=== PATIENT | female | born 1955 | race Caucasian/White ===

== ENCOUNTER 2016-10-28 22:01 | Observation (INO) | payer BC ==
--- NOTE | 2016-10-28 22:10 | CPEKG ---
Heart Rate: 87 RR Interval: 690 P-R Interval: 132 QRSD Interval: 72 QT Interval: 400 QTC Interval: 482 P [place]: 68 QRS [place]: 62 T Wave [place]: -29 EKG Severity - BORDERLINE ECG - EKG Impression: SINUS RHYTHM EKG Impression: BORDERLINE T ABNORMALITIES, INFERIOR LEADS Electronically Signed By: Hubert Leroy 29-Oct-2016 01:35:07
[2016-10-28] MEDS ORDERED: NS 1,000 ML IV ONE (22:14)
[2016-10-28] MEDS ORDERED: NALOXONE HCL 0.4 MG/ML INJ ONE (22:22)
[2016-10-28] MEDS ORDERED: LORazepam 2 MG/ML INJ IVP ONE (22:25)
[2016-10-28 22:28] LABS: % IMMATURE GRANULYOCYTES 0.3 % (0.0-1.1); ABSOLUTE IMMATURE GRANULOCYTES 0.03 10^3/uL (0.00-0.10); ADD DIFF? NO; ADD MORPH? NO; ADD SCAN? NO; ATYPICAL LYMPHOCYTE FLAG 20 (0-99); FRAGMENT RBC FLAG 0 (0-99); HEMATOCRIT 43.1 % (38.0-47.0); HEMOGLOBIN 14.5 g/dL (12.6-16.3); LEFT SHIFT FLG 0 (0-99); LIPEMIA HEMOLYSIS FLAG 80 (0-99); MEAN CELL HEMOGLOBIN 25.4 pg (27.9-34.1); MEAN CELL HEMOGLOBIN CONCENTR. 33.6 g/dL (32.4-36.7); MEAN CELL VOLUME 75.6 fL (81.5-99.8); MEAN PLATELET VOLUME 10.2 fL (8.7-11.7); PLATELET CLUMPS FLAG 0 (0-99); PLATELET COUNT 306 10^3/uL (150-400); RED CELL DISTRIBUTION WIDTH 13.3 % (11.5-15.2)
[2016-10-28 22:41] LABS: ANION GAP 18 mEq/L (8-16); CARBON DIOXIDE 20 mEq/l (22-31); CHLORIDE 100 mEq/L (97-110); CREATININE 0.8 mg/dL (0.6-1.0); GLOMERULAR FILTRATION RATE > 60; GLUCOSE 159 mg/dL (70-100); POTASSIUM 3.8 mEq/L (3.5-5.2); SODIUM 138 mEq/L (134-144)
[2016-10-28 22:53] LABS: TROPONIN I 0.226 ng/mL (0-0.034)
--- NOTE | 2016-10-28 23:09 | EDPHY ---
H & P Stated Complaint: S/p [id number] for 4 days Time Seen by Provider: 10/28/16 22:04 HPI/ROS: Chief Complaint: Cough, shortness of breath, nausea HPI: 61-year-old woman brought in from the [facility] this evening. Patient states she has been having a cough and cold-like symptoms for the last 3 days. She has been staying in bed of the getting out to register for the race. She was unable to complete the course tonight. She developed worsening shortness of breath, some nausea no vomiting. Has having a productive cough of greenish sputum. Some subjective chills. Has got diffuse body aches as well. Denies chest pain. Does have some leg cramping. She is visiting from [facility]. States she has been in town for about 7 days. ROS: 10 point Review of Systems is negative except as noted in the HPI. PMH: Hyper lipidemia, insomnia Medications: Simvastatin, trazodone, gabapentin Allergies: No known drug allergies Social History: No smoking, occasional alcohol, no recreational drug use Family History: non-contributory Physical Exam: Gen: Awake, Alert, anxious appearing, no distress HEENT: Nose: no rhinorrhea Eyes: PERRLA, EOMI Mouth: Moist mucosa Neck: Supple, no JVD Chest: nontender, lungs clear to auscultation Heart: S1, S2 normal, no murmur Abd: Soft, non-tender, no guarding Back: no CVA tenderness, no midline tenderness Ext: no edema, non-tender Skin: no rash Neuro: CN II-XII intact, Sensation grossly intact, Strength 5/5 in bilateral upper and lower extremities - Personal History Current Tetanus Diphtheria and Acellular Pertussis (TDAP): Yes - Medical/Surgical History Hx Asthma: No Hx Chronic Respiratory Disease: No Hx Diabetes: No Hx Cardiac Disease: No Hx Renal Disease: No Hx Cirrhosis: No Hx Alcoholism: No Hx HIV/AIDS: No Hx Splenectomy or Spleen Trauma: No Other PMH: hysterectomy - Social History Smoking Status: Never smoked Constitutional: Initial Vital Signs Temperature (C) 36.6 C 10/28/16 22:14 Heart Rate 81 10/28/16 22:14 Respiratory Rate 50 H 10/28/16 22:14 Blood Pressure 155/76 H 10/28/16 22:14 O2 Sat (%) 99 10/28/16 22:14 O2 Delivery Mode Room Air Medical Decision Making - Diagnostics EKG Interpretation: ECG time 10:08 p.m., sinus rhythm with a rate of 87, normal axis, normal intervals, no acute ST or T-wave changes. Imaging Results: Imaging Impressions Chest X-Ray 10/28/16 22:13 Impression: Suspect early left lower lobe pneumonia. Findings and recommendations discussed with Emergency Department physician, Hubert Leroy MD at 22:36 hour, 10/28/2016. Final report concurs with initial preliminary interpretation. Imaging: Discussed imaging studies w/ call center support representative Radiologist, I viewed and interpreted images myself ED Course/Re-evaluation: 61-year-old with productive cough and general fatigue after running the iron man. No acute findings on her ECG. Chest x-ray is consistent with a left lower lobe pneumonia. Patient has a mild elevation in his CPK. Troponin is noted to be elevated at 0.224. Patient has had blood culture sent. Will order IV antibiotics. Patient has also been given aspirin. Will continue to hydrate Discussed with Dr. roland, hospitalist. Will admit to PCU for IV antibiotics, serial troponins and continued hydration. - Data Points Laboratory Results: Laboratory Results 10/28/16 22:00 10/28/16 22:00 10/28/16 10/28/16 10/28/16 22:07 22:00 22:00 WBC RBC Hgb POC Hgb 15.3 gm/dL gm/dL (12.6-16.3) Hct POC Hct 45 % % (38-47) MCV MCH MCHC RDW Plt Count MPV Neut % (Auto) Lymph % (Auto) [place] % (Auto) Eos % (Auto) Baso % (Auto) Nucleat RBC Rel Count Absolute Neuts (auto) Absolute Lymphs (auto) Absolute Monos (auto) Absolute Eos (auto) Absolute Basos (auto) Absolute Nucleated RBC Immature Gran % Immature Gran # POC Sodium 139 mEq/L mEq/L (134-144) Sodium 138 mEq/L mEq/L (134-144) POC Potassium 3.5 mEq/L mEq/L (3.3-5.0) Potassium 3.8 mEq/L mEq/L (3.5-5.2) POC Chloride 100 mEq/L mEq/L (97-110) Chloride 100 mEq/L mEq/L (97-110) Carbon Dioxide 20 mEq/l L mEq/l (22-31) Anion Gap 18 mEq/L H mEq/L (8-16) POC BUN 14 mg/dL mg/dL (7-23) BUN 15 mg/dL mg/dL (7-23) Creatinine 0.8 mg/dL mg/dL (0.6-1.0) POC Creatinine 0.8 mg/dL mg/dL (0.6-1.0) Estimated GFR > 60 Glucose 159 mg/dL H mg/dL (70-100) POC Glucose 161 mg/dL H mg/dL (70-100) Calcium 11.0 mg/dL H mg/dL (8.5-10.4) Phosphorus 1.9 mg/dL L mg/dL (2.5-4.5) Creatine Kinase 1325 IU/L H IU/L (0-156) CK-MB (CK-2) Fraction Pending CK-MB (CK-2) % Pending Creatine Kinase Interp Pending Troponin I 0.226 ng/mL H ng/mL (0-0.034) 10/28/16 22:00 WBC 10.55 10^3/uL H 10^3/uL (3.80-9.50) RBC 5.70 10^6/uL H 10^6/uL (4.18-5.33) Hgb 14.5 g/dL g/dL (12.6-16.3) POC Hgb Hct 43.1 % % (38.0-47.0) POC Hct MCV 75.6 fL L fL (81.5-99.8) MCH 25.4 pg L pg (27.9-34.1) MCHC 33.6 g/dL g/dL (32.4-36.7) RDW 13.3 % % (11.5-15.2) Plt Count 306 10^3/uL 10^3/uL (150-400) MPV 10.2 fL fL (8.7-11.7) Neut % (Auto) 74.6 % H % (39.3-74.2) Lymph % (Auto) 15.0 % % (15.0-45.0) [place] % (Auto) 9.8 % % (4.5-13.0) Eos % (Auto) 0.0 % L % (0.6-7.6) Baso % (Auto) 0.3 % % (0.3-1.7) Nucleat RBC Rel Count 0.0 % % (0.0-0.2) Absolute Neuts (auto) 7.88 10^3/uL H 10^3/uL (1.70-6.50) Absolute Lymphs (auto) 1.58 10^3/uL 10^3/uL (1.00-3.00) Absolute Monos (auto) 1.03 10^3/uL H 10^3/uL (0.30-0.80) Absolute Eos (auto) 0.00 10^3/uL L 10^3/uL (0.03-0.40) Absolute Basos (auto) 0.03 10^3/uL 10^3/uL (0.02-0.10) Absolute Nucleated RBC 0.00 10^3/uL 10^3/uL (0-0.01) Immature Gran % 0.3 % % (0.0-1.1) Immature Gran # 0.03 10^3/uL 10^3/uL (0.00-0.10) POC Sodium Sodium POC Potassium Potassium POC Chloride Chloride Carbon Dioxide Anion Gap POC BUN BUN Creatinine POC Creatinine Estimated GFR Glucose POC Glucose Calcium Phosphorus Creatine Kinase CK-MB (CK-2) Fraction CK-MB (CK-2) % Creatine Kinase Interp Troponin I Medications Given: Discontinued Medications Sodium Chloride (Ns) 1,000 mls @ 0 mls/hr IV ONCE ONE; Wide Open PRN Reason: Protocol Stop: 10/28/16 22:15 Last Admin: 10/28/16 23:10 Dose: 1,000 mls Lorazepam (Ativan Injection) 1 mg IVP EDNOW ONE Stop: 10/28/16 22:26 Last Admin: 10/28/16 23:10 Dose: Not Given Point of Care Test Results: 10/28/16 22:07 POC Sodium 139 POC Potassium 3.5 POC Chloride 100 POC BUN 14 POC Creatinine 0.8 POC Glucose 161 H Departure - Departure Disposition: [facility] Inpatient Acute Clinical Impression: Dehydration, Pneumonia, Rhabdomyolysis, Elevated troponin Condition: Fair Referrals: Patient,NotPresent [Primary Care Provider] - As per Instructions
[2016-10-28] MEDS ORDERED: cefTRIAXone 2 GM in D5W 50 ML IV ONE (23:11)
[2016-10-28] MEDS ORDERED: AZITHROMYCIN 250 MG TAB PO ONE (23:11)
[2016-10-28] MEDS ORDERED: ASPIRIN 325 MG TAB ONE (23:14)
[2016-10-28 23:40] LABS: CK-MB INTERPRETATION NEGATIVE (NEGATIVE)
[2016-10-28] MEDS ORDERED: ONDANSETRON 4 MG/2 ML VIAL IVP ONE (23:43)
[2016-10-29] MEDS ORDERED: ONDANSETRON 4 MG/2 ML VIAL IVP PRN (01:22)
[2016-10-29] MEDS ORDERED: ONDANSETRON DISINTEGRATING 4 MG TAB PO PRN (01:22)
[2016-10-29] MEDS ORDERED: ACETAMINOPHEN 325 MG TAB PO PRN (01:22)
[2016-10-29] MEDS ORDERED: guaiFENesin/CODEINE PHOS 10 ML UDCUP PO PRN (01:26)
[2016-10-29] MEDS ORDERED: NS W/ 20 KCl/L 1,000 ML IV SCH (01:30)
[2016-10-29] MEDS ORDERED: ALBUTEROL 60 PUFFS/8 GM MDI IH PRN (03:19)
[2016-10-29] MEDS ORDERED: CEPACOL LOZENGE PO PRN (03:20)
[2016-10-29] MEDS ORDERED: LIDOCAINE 2% VISCOUS 15 ML UDCUP PO PRN (03:20)
--- NOTE | 2016-10-29 03:27 | PDGENHP ---
History and Physical - Chief Complaint Acute malaise - History of Present Illness 61 year female presents with acute malaise characterized as a evolution of symptoms making her feel generally unwell including sore throat, sinus congestion, myalgias, associated productive cough of green sputum with onset of symptoms 4 days prior and duration persistent thereafter. Patient reports that the symptoms began after she traveled to [place] and they have not abated despite resting daily, throat lozenges, [id number] DayQuil. She attempted to complete the iron man challenge on the day of this presentation and she reports that her symptoms were exacerbated by the swimming and running portions of the challenge in particular. She also reports poor oral intake on the day of this presentation secondary to anorexia but no overt nausea or vomiting. She does report that since stopping the race and presenting to the emergency department, her symptoms have been somewhat alleviated with the IV fluids and electrolyte she has received here. During the entirety of the challenge as well as the days leading up to it, the patient denies any overt chest pain or particular shortness of breath. History Information - Allergies/Home Medication List Allergies/Adverse Reactions: No Known Allergies Allergy (Unverified 10/28/16 23:42) I have personally reviewed and updated: family history, medical history, social history, surgical history - Past Medical History hyperlipidemia Additional medical history: Transaminitis of unclear etiology - Surgical History Reports: no pertinent surgical hx - Family History Additional family history: mother with coronary artery disease and balloon angioplasty, not premature - Social History Smoking Status: Never smoked Alcohol Use: Occasionally Drug Use: None Additional social history: lives in [facility], most recent iron man completed was in March of 2016 Review of Systems ROS: 10pt was reviewed & negative except for what was stated in HPI & below Constitutional: Reports: malaise, weakness EENMT: Reports: nose congestion, sore throat, other ( sinus congestion, rhinorrhea) Respiratory: Reports: cough ( productive) Muscolosketal: Reports: muscle pain Physical Exam Temp Pulse Resp BP Pulse Ox 37.2 C 78 18 129/64 H 94 10/29/16 00:25 10/29/16 00:25 10/29/16 00:25 10/29/16 00:25 10/29/16 00:25 Constitutional: no apparent distress, not in pain, other ( sunburned), No uncomfortable Eyes: PERRL, anicteric sclera, scleral injection Ears, Nose, Mouth, Throat: moist mucous membranes, hearing normal, ears appear normal, no oral mucosal ulcers, other ( no tonsillar exudate) Cardiovascular: diastolic murmur ( right sternal border), No irregularly irregular, No tachycardia, No edema Respiratory: inspiratory crackles ( left base posteriorly), No reduced air movement, No expiratory wheeze, No bronchial breath sounds, No respiratory distress Gastrointestinal: normoactive bowel sounds, soft, non-tender abdomen, no palpable masses Skin: other ( sunburn legs up to the mid thighs, skin mildly raised, sunburned face) Neurologic: AAOx3, sensation intact bilaterally, No weakness Psychiatric: interacting appropriately, not anxious, not encephalopathic, thought process linear Lab Data & Imaging Review 10/28/16 22:00 10/28/16 22:00 WBC 10.55 10^3/uL (3.80-9.50) H 10/28/16 22:00 RBC 5.70 10^6/uL (4.18-5.33) H 10/28/16 22:00 Hgb 14.5 g/dL (12.6-16.3) 10/28/16 22:00 POC Hgb 15.3 gm/dL (12.6-16.3) 10/28/16 22:07 Hct 43.1 % (38.0-47.0) 10/28/16 22:00 POC Hct 45 % (38-47) 10/28/16 22:07 MCV 75.6 fL (81.5-99.8) L 10/28/16 22:00 MCH 25.4 pg (27.9-34.1) L 10/28/16 22:00 MCHC 33.6 g/dL (32.4-36.7) 10/28/16 22:00 RDW 13.3 % (11.5-15.2) 10/28/16 22:00 Plt Count 306 10^3/uL (150-400) 10/28/16 22:00 MPV 10.2 fL (8.7-11.7) 10/28/16 22:00 Neut % (Auto) 74.6 % (39.3-74.2) H 10/28/16 22:00 Lymph % (Auto) 15.0 % (15.0-45.0) 10/28/16 22:00 [place] % (Auto) 9.8 % (4.5-13.0) 10/28/16 22:00 Eos % (Auto) 0.0 % (0.6-7.6) L 10/28/16 22:00 Baso % (Auto) 0.3 % (0.3-1.7) 10/28/16 22:00 Nucleat RBC Rel Count 0.0 % (0.0-0.2) 10/28/16 22:00 Absolute Neuts (auto) 7.88 10^3/uL (1.70-6.50) H 10/28/16 22:00 Absolute Lymphs (auto) 1.58 10^3/uL (1.00-3.00) 10/28/16 22:00 Absolute Monos (auto) 1.03 10^3/uL (0.30-0.80) H 10/28/16 22:00 Absolute Eos (auto) 0.00 10^3/uL (0.03-0.40) L 10/28/16 22:00 Absolute Basos (auto) 0.03 10^3/uL (0.02-0.10) 10/28/16 22:00 Absolute Nucleated RBC 0.00 10^3/uL (0-0.01) 10/28/16 22:00 Immature Gran % 0.3 % (0.0-1.1) 10/28/16 22:00 Immature Gran # 0.03 10^3/uL (0.00-0.10) 10/28/16 22:00 VBG Lactic Acid 2.0 mmol/L (0.7-2.1) 10/28/16 23:10 POC Sodium 139 mEq/L (134-144) 10/28/16 22:07 Sodium 138 mEq/L (134-144) 10/28/16 22:00 POC Potassium 3.5 mEq/L (3.3-5.0) 10/28/16 22:07 Potassium 3.8 mEq/L (3.5-5.2) 10/28/16 22:00 POC Chloride 100 mEq/L (97-110) 10/28/16 22:07 Chloride 100 mEq/L (97-110) 10/28/16 22:00 Carbon Dioxide 20 mEq/l (22-31) L 10/28/16 22:00 Anion Gap 18 mEq/L (8-16) H 10/28/16 22:00 POC BUN 14 mg/dL (7-23) 10/28/16 22:07 BUN 15 mg/dL (7-23) 10/28/16 22:00 Creatinine 0.8 mg/dL (0.6-1.0) 10/28/16 22:00 POC Creatinine 0.8 mg/dL (0.6-1.0) 10/28/16 22:07 Estimated GFR > 60 10/28/16 22:00 Glucose 159 mg/dL (70-100) H 10/28/16 22:00 POC Glucose 161 mg/dL (70-100) H 10/28/16 22:07 Calcium 11.0 mg/dL (8.5-10.4) H 10/28/16 22:00 Phosphorus 1.9 mg/dL (2.5-4.5) L 10/28/16 22:00 Creatine Kinase 1325 IU/L (0-156) H 10/28/16 22:00 CK-MB (CK-2) Fraction 18.00 ng/mL (0-4.55) H 10/28/16 22:00 CK-MB (CK-2) % 1.4 % (0.0-4.0) 10/28/16 22:00 Creatine Kinase Interp NEGATIVE (NEGATIVE) 10/28/16 22:00 Troponin I 0.226 ng/mL (0-0.034) H 10/28/16 22:00 Procalcitonin 0.22 ng/mL (0.02-0.10) H 10/28/16 22:00 Visualized and Interpreted Chest x-ray results: Yes Chest X-Ray results: other ( faint possible infiltrate in the left lower lobe) Visualized and Interpreted EKG results: Yes EKG Interpretation: Positive for: other ( normal sinus rhythm without any ischemic changes) Assessment & Plan Assessment: 61-year-old female presenting with possible pneumonia in the setting of abnormal troponin level Plan: 1. Possible pneumonia. Acute, new problem this provider, further workup indicated. Evidenced by possible left lower lobe infiltrate on chest x-ray as well as mild leukocytosis and Infectious sending symptoms. - send procalcitonin level to help guide whether this is bacterial versus viral - empirically send respiratory viral panel as her constellation of symptoms is highly suggestive of a viral process - monitor CBC - if procalcitonin level positive, suggest getting a CT without contrast of the chest to further define whether she has a focal left lower lobe infiltrate and if not would recommend imaging neck with IV contrast to determine whether she has any peritonsillar abscess - discussed with Dr. Douglas Leroy in the emergency department, he has reported to me that the patient was given IV ceftriaxone and azithromycin, continue 2. Abnormal troponin level. Most likely secondary to myocardial strain in the setting of completing 2/3 of an Iron Man challenge without any overt chest pain , shortness of breath, recent reduction in exercise tolerance outside of what would be expected with attempting to complete the aforementioned rates in the setting of possible pneumonia - repeat troponin level in a.m. - if troponin level is rising or persistently elevated, recommend getting echocardiogram at that time and then considering possible further cardiac risk stratification - discussed with patient, I have recommended to her that if her troponin level is down trending then she defer a stress test until she sees her primary care provider and then that performed prior to reinitiating Iron Man level training or further challenges - monitor on telemetry overnight 3. Sunburn. Provide as needed moist rising lotion, no evidence of renal dysfunction so it is unlikely that she is experienced acute sun poisoning 4. Hyperglycemia. Most likely stress response in the setting of recent physical exertion. Diet. Regular Prophylaxis. High risk patient, Lovenox 40 Code. Full Disposition. Anticipated discharge is 10/29/2016, pending further workup as outlined above.
[2016-10-29 05:43] VITALS: RESP 16
[2016-10-29 06:07] LABS: % IMMATURE GRANULYOCYTES 0.3 % (0.0-1.1); ABSOLUTE IMMATURE GRANULOCYTES 0.02 10^3/uL (0.00-0.10); ADD DIFF? NO; ADD MORPH? NO; ADD SCAN? NO; ATYPICAL LYMPHOCYTE FLAG 20 (0-99); FRAGMENT RBC FLAG 0 (0-99); HEMATOCRIT 37.8 % (38.0-47.0); HEMOGLOBIN 12.3 g/dL (12.6-16.3); LEFT SHIFT FLG 0 (0-99); LIPEMIA HEMOLYSIS FLAG 80 (0-99); MEAN CELL HEMOGLOBIN 25.3 pg (27.9-34.1); MEAN CELL HEMOGLOBIN CONCENTR. 32.5 g/dL (32.4-36.7); MEAN CELL VOLUME 77.8 fL (81.5-99.8); MEAN PLATELET VOLUME 10.6 fL (8.7-11.7); PLATELET CLUMPS FLAG 0 (0-99); PLATELET COUNT 259 10^3/uL (150-400); RED BLOOD CELL COUNT 4.86 10^6/uL (4.18-5.33); RED CELL DISTRIBUTION WIDTH 13.3 % (11.5-15.2)
[2016-10-29 07:29] VITALS: BP 112/59; PULSE 67; TEMP 98.1; O2SAT 97
[2016-10-29 07:44] LABS: ALANINE AMINOTRANSFERASE 49 IU/L (9-52); ALBUMIN 3.6 g/dL (3.5-5.0); ALKALINE PHOSPHATASE 66 IU/L (38-126); ANION GAP 10 mEq/L (8-16); ASPARTATE AMINOTRANSFERASE 75 IU/L (14-46); BILIRUBIN,TOTAL 0.6 mg/dL (0.1-1.4); CALCIUM 9.6 mg/dL (8.5-10.4); CARBON DIOXIDE 24 mEq/l (22-31); CHLORIDE 106 mEq/L (97-110); CREATININE 0.7 mg/dL (0.6-1.0); GLOMERULAR FILTRATION RATE > 60; GLUCOSE 98 mg/dL (70-100); POTASSIUM 4.3 mEq/L (3.5-5.2); SODIUM 140 mEq/L (134-144); TOTAL PROTEIN 5.8 g/dL (6.3-8.2)
[2016-10-29 07:55] LABS: TROPONIN I 0.136 ng/mL (0-0.034)
--- NOTE | 2016-10-29 08:47 | CPEKG ---
Heart Rate: 59 RR Interval: 1017 P-R Interval: 140 QRSD Interval: 74 QT Interval: 456 QTC Interval: 452 P [place]: 73 QRS [place]: 68 T Wave [place]: 32 EKG Severity - BORDERLINE ECG - EKG Impression: SINUS ARRHYTHMIA, RATE 49-68 Electronically Signed By: Darren Everett 29-Oct-2016 10:39:23
[2016-10-29] MEDS ORDERED: AZITHROMYCIN IV 500 MG in D5W 250 ML IV SCH (09:00)
[2016-10-29] MEDS ORDERED: ENOXAPARIN 40 MG/0.4 ML SYR SC SCH (09:00)
[2016-10-29] MEDS ORDERED: MULTIVITAMINS 1 EACH TAB PO SCH (09:00)
[2016-10-29] MEDS ORDERED: guaiFENesin 600 MG TAB.ER PO SCH (09:00)
--- NOTE | 2016-10-29 10:35 | PDDCSUM ---
Discharge Summary Discharge Summary: Dates of service 10/28-10/29/16 Discharge dx: # pneumonia # dehydration # elevated trop Consultation: none Procedures: echo, chest ct 61 yo F [place] with several days of URI sxs prior to competing in [employer] and developing worsening sob # pneumonia: suspect early LLL pna based on imaging and sxs. Given ctx/azith in house adn will dc on azith # dehydration: related to competing in [employer] and having poor po intake # elevated trop: in setting of demand ischemia and trended down, echo wnl, no further w/u indicated at this oint, will f/u with pcp No new meds dc home f/u w/pcp
--- NOTE | 2016-10-29 17:34 | ECHO ---
[id number] + + [address] : : [place] [address] : : [phone] + + Adult Echocardiographic Report + -----+ :Name: Sumit PEREIRAevy Date: 10/29/2016 09:23 AM BP: 112/59 mmHg : : Hospital Admission Number: [id number] Location : 218: :: 1955 Gender: Female Height: 69 in : :Age: 61 yrs Race: WH Weight: 126 lb : :Reason For Study: abnl ecg elev trop : : BSA: 1.7 meters2 : :History: near syncope, ironman athlete, : + -----+ MMode/2D Measurements \T\ Calculations IVSd: 0.74 cm RVDd: 2.9 cm FS: 31.1 % Ao root diam: LVPWd: 0.95 cm LVIDd: 4.3 cm EDV(Teich): 2.3 cm LVIDs: 3.0 cm 83.8 ml ESV(Teich): 34.2 ml EF(Teich): 59.2 % LVLd ap4: 7.5 cm SV(MOD-sp4): EDV(MOD-sp4): 62.0 ml 90.0 ml LVLs ap4: 5.4 cm ESV(MOD-sp4): 28.0 ml EF(MOD-sp4): 68.9 % Normal Measurement Values: + + :LVIDd (3.5-5.7cm) IVSd (0.6-1.1cm) LVPWd (0.6-1.1cm) Aortic Root (2.0-3.7cm)Left Atrium (1.5-4.0cm): :LV Vol(d) (76-115ml) LV Vol(s) (29-48ml) Ejec Fraction (50-65%)PV Talib (0.6- 1.2m/s) TV Talib (0.4-1.0m/s) : :MV E Talib (0.8-1.0m/s)MV A Talib (0.3-1.0m/s)LVOT Talib (0.7-1.2m/s) Asc Ao Talib ( 0.9-1.8m/s) : + + Doppler Measurements \T\ Calculations MV E max talib: Ao V2 max: LV V1 max: PA V2 max: 72.6 cm/sec 143.6 cm/sec 99.7 cm/sec 115.8 cm/sec MV A max talib: Ao max PG: LV V1 max PG: PA max P.8 cm/sec 8.2 mmHg 4.0 mmHg 5.4 mmHg MV E/A: 1.4 MV dec time: 0.13 sec TR max talib: 289.0 cm/sec TR max P.4 mmHg RAP systole: 5.0 mmHg RVSP(TR): 38.4 mmHg Left Ventricle The left ventricle is normal in size and function. There is normal left ventricular wall thickness. Ejection Fraction = 65%. No regional wall motion abnormalities noted. Right Ventricle The right ventricle is normal in size and function. Atria The left atrial size is normal. Right atrial size is normal. Mitral Valve The mitral valve is normal in structure and function. There is borderline mitral valve prolapse. There is no mitral valve stenosis. There is trace mitral regurgitation. Tricuspid Valve The tricuspid valve is normal in structure and function. There is no tricuspid stenosis. There is mild tricuspid regurgitation. Right ventricular systolic pressure is 38mmHg. Aortic Valve The aortic valve is normal in structure and function. There is no aortic stenosis. There is no aortic insufficiency. Pulmonic Valve The pulmonic valve is normal in structure and function. Trace pulmonic valvular regurgitation. Great Vessels The aortic root is normal size. Pericardium/Pleural trivial pericardial effusion. Conclusion A two-dimensional transthoracic echocardiogram with M-mode and Doppler was performed. The left ventricle is normal in size and function. Ejection Fraction = 65%. There is borderline mitral valve prolapse. There is trace mitral regurgitation. There is mild tricuspid regurgitation. Right ventricular systolic pressure is 38mmHg. The aortic valve is normal in structure and function. Trace pulmonic valvular regurgitation. trivial pericardial effusion. No prior echo Final Reading Physician: Dr Cristina Harris electronically signed on 10/29/2016 05:33 PM Ordering Physician: Robert Cantor Performed By: Caroline Romero
[2016-10-29] MEDS ORDERED: traZODone 100 MG TAB PO SCH (21:00)
[2016-10-29] MEDS ORDERED: NON-FORMULARY NEW DRUG (Simvastatin [Zocor] 20 MG) PO SCH (21:00)
[2016-10-29] MEDS ORDERED: ATORVASTATIN CALCIUM 10 MG TAB PO SCH (21:00)
[2016-10-29] MEDS ORDERED: GABAPENTIN 300 MG CAP PO SCH (21:00)
== END 2016-10-29 12:28 | disposition home or self-care (01) ==
LOC: F2W 10-29 00:17
PROVIDERS: ADMIT Internal Medicine; ATTEND Internal Medicine
DX: J18.9 Pneumonia, unspecified organism (principal); E86.0 Dehydration; I24.8 Other forms of acute ischemic heart disease
CPT/HCPCS: 71020; 71250; 93005; 93306; G0378; 82947-QW; 96365; J0456; J0696; J1650; J2310